=== PATIENT | male | born 1980 | race Caucasian/White ===

== ENCOUNTER 2017-07-10 09:14 | Day surgery (SDC) | payer BC ==
[~2017-07-10 09:14] MED LIST: BUPIVACAINE 0.25%/EPI (SDV) 30 ML INJ; CEFAZOLIN 1 GM INJ; CEFAZOLIN 2 GM/50 ML (PMX) 50 ML IVPB; DEXAMETHASONE 4 MG/ML 1 ML INJ; METOCLOPRAMIDE 10 MG INJ
[2017-07-10] MEDS ORDERED: MIDAZOLAM 1 MG/ML 2 ML INJ (12:00)
[2017-07-10] MEDS ORDERED: FENTAnyl 50 MCG/ML VIAL (12:00)
[2017-07-10] MEDS ORDERED: PROPOFOL 20 ML (12:03)
[2017-07-10] MEDS ORDERED: LIDOCAINE 2% (SDV) 5 ML INJ (12:03)
[2017-07-10] MEDS ORDERED: ONDANSETRON 4 MG INJ (12:14)
[2017-07-10] MEDS: BUPIVACAINE 0.25% (MPF) 30 ML INJ (12:41)
[2017-07-10] MEDS ORDERED: DIPHENHYDRAMINE 50 MG INJ IV (13:00)
[2017-07-10] MEDS ORDERED: ONDANSETRON 4 MG INJ IV (13:00)
[2017-07-10] MEDS ORDERED: MEPERIDINE 25 MG INJ IV (13:00)
[2017-07-10] MEDS ORDERED: KETOROLAC 30 MG INJ IV (13:00)
[2017-07-10] MEDS ORDERED: FENTAnyl 50 MCG/ML VIAL IV (13:00)
[2017-07-10] MEDS ORDERED: HYDROmorphONE (0.2 MG/ML) 10ML SYG IV ×2 (13:00)
[2017-07-10] MEDS: FENTAnyl 50 MCG/ML VIAL IV (13:18)
[2017-07-10] MEDS: HYDROCODONE/APAP (5/325) TAB PO (14:00)
== END 2017-07-10 14:30 | disposition home or self-care (01) ==
LOC: SDS 09:14
DX: N43.3 Hydrocele, unspecified (principal)
CPT/HCPCS: 55500; 88304